=== PATIENT | male | born 1995 | race Caucasian/White ===

== ENCOUNTER 2021-07-05 09:39 | Emergency (ER) | payer SELFPAY ==
[~2021-07-05] VITALS: Ht 180.3 cm; Wt 66.2 kg
[2021-07-05 09:45] VITALS: BP 126/84
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
--- NOTE | 2021-07-05 10:02 | NUR ---
PATIENT BIB [facility] [employer]. PATIENT EXAMINED BY DR. GARCIA. PATIENT MEDICALLY CLEARED AND RELEASED IN CUSTODY IN STABLE CONDITION. ORIGINAL PRE-BOOK FORM GIVEN TO OFFICER SELENA.
== END 2021-07-05 10:02 ==
LOC: MED 09:39
DX: F17.200 Nicotine dependence, unspecified, uncomplicated (principal); Z02.89 Encounter for other administrative examinations
CPT/HCPCS: 99283